=== PATIENT | female | born 1995 | race Caucasian/White ===

== ENCOUNTER 2016-07-31 18:30 | Emergency (ER) | payer MEDICAID ==
[~2016-07-31] VITALS: Wt 59.5 kg
[~2016-07-31 18:30] MED LIST: ALBU8.5H3 INH; MED4DP PO
[2016-07-31] MEDS ORDERED: LORA-186 PO (18:47)
[2016-07-31] MEDS ORDERED: SODI30SP2 NS (18:47)
--- NOTE | 2016-07-31 19:13 | ERD ---
ER Documentation Chief Complaint Date/Time DATE: 07/31/16 TIME: 19:10 Chief Complaint SORE THROAT S/P SMOKING E-MARIJUANA PEN NAUSEA/HEADACHE/SINUS PRESSURE HPI This is a 21-year-old female presenting to the emergency department complaining of a mild to moderate sore throat that occurred status post "hitting from her bong" last night. Patient states that she had a lot of coughing at that time and states that never occurred before. Patient states that she woke up this morning with nasal congestion. She denies this is mild to moderate in severity. She denies any fevers, chest pain or shortness of breath ROS All systems reviewed and are negative except as per history of present illness. Medications Home Meds Active Scripts Sodium Chloride (Saline Nasal [place]) 30 Ml [place], 30 ML NS BID for 5 Days, SPRAY Prov:LISA RANDALL PA-C 07/31/16 Loratadine* (Claritin*) 10 Mg Tablet, 10 MG PO DAILY, #30 TAB Prov:LISA RANDALL PA-C 07/31/16 Albuterol Sulfate* (Proair HFA*) 8.5 Gm Hfa.aer.ad, 2 PUFF INH Q4, #1 INHALER Prov:HO ALBERT 12/09/15 Methylprednisolone* (Medrol* DOSE PACK) 4 Mg/Dose-Pack Tab.ds.pk, 4 MG PO . DIRECTED for 6 Days, PACKET Prov:HO ALBERT 12/09/15 Allergies Allergies: Coded Allergies: Penicillins (Verified Allergy, Intermediate, Rash, 12/09/15) amoxicillin (Verified Allergy, Intermediate, rash, 12/09/15) PMhx/Soc History of Surgery: No Anesthesia Reaction: No Hx Neurological Disorder: No Hx Respiratory Disorders: No Hx Cardiac Disorders: No Hx Psychiatric Problems: No Hx Alcohol Use: No Hx Substance Use: Yes ("blunts" marijuana) Hx Tobacco Use: No Physical Exam Vitals Vital Signs Date Time Temp Pulse Resp B/P Pulse Ox O2 Delivery O2 Flow Rate FiO2 07/31/16 18:32 98.5 74 20 133/82 98 Physical Exam GENERAL: well-developed/well-nourished, in no apparent distress, non-toxic appearing HEAD: NC/AT, no swelling noted in frontal or maxillary areas EARS: bilateral tympanic membrane is intact without erythema or effusion NARES: nares patent, rhinorrhea and congested THROAT: oropharynx nonerythematous without exudates, no tonsil enlargement, post nasal drip EYES: Conjunctiva normal NECK: Supple, no lymphadenopathy PULM: CTA bilaterally, no rales, rhonchi, or wheezing heard CV: Normal S1S2, RRR, good capillary refill GI: Soft, non-distended, normal bowel sounds, non-tender BACK: No midline tenderness, no masses EXT No clubbing, cyanosis, or edema NEURO: Alert and Orientated SKIN: Intact, normal turgor PSYCH: Normal mood and mentation Procedures/MDM This is a 21-year-old female presenting to the emergency department complaining of a sore throat status post smoking and coughing from a marijuana bong last night. On examination, patient had nasal congestion, this likely due to postnasal drip and allergies. Patient did not have any evidence of strep pharyngitis, mononucleosis, Rey's angina, peritonsillar abscess or retropharyngeal abscess. Patient is suitable and stable for discharge for home with precautions to return to the emergency department. Prescription for hypertension and nasal saline rinses given. She understands and agrees with plan Departure Diagnosis: Primary Impression: URI (upper respiratory infection) Condition: Stable Patient Instructions: Preventing Common Respiratory Infections, Uri, Viral, No Abx (Adult) Referrals: DOCTOR,NOT ON STAFF Additional Instructions: FOLLOW UP WITH YOUR PRIMARY CARE PHYSICIAN TOMORROW.Return to this facility if you are not improving as expected. Take all medicines as directed. Return to this facility if you are not improving as expected. LISA RANDALL PA-C July 31, 2016 19:13
== END 2016-07-31 18:48 | disposition home or self-care (01) ==
LOC: E/R 18:30
DX: J06.9 Acute upper respiratory infection, unspecified (principal)
CPT/HCPCS: 99283

== ENCOUNTER 2016-08-30 20:00 | Emergency (ER) | payer MEDICAID, OTHER ==
[~2016-08-30] VITALS: Ht 167.6 cm; Wt 58.5 kg
[~2016-08-30 20:00] MED LIST changes: +LORA-186 PO; +SODI30SP2 NS
[2016-08-30 20:01] VITALS: Ht 167.6 cm; Wt 58.5 kg
[2016-08-30] MEDS ORDERED: KETOROLAC 15 MG INJ IM STA (21:00)
[2016-08-30] MEDS ORDERED: METOCLOPRAMIDE 10 MG TAB PO ONE (21:00)
[2016-08-30] MEDS ORDERED: HYDROCODONE/APAP (5/325) TAB PO ONE (21:00)
[2016-08-30] MEDS ORDERED: IBUP400T22 PO (22:11)
[2016-08-30] MEDS ORDERED: ONDA4TAB14 PO (22:27)
--- NOTE | 2016-08-31 07:16 | ERA ---
ER Documentation Chief Complaint Date/Time DATE: 08/31/16 TIME: 07:09 Chief Complaint headache x 1 day HPI This is a 21-year-old female who presents with a headache that is described as 7 out of 10 and a pressure-like starting 12 hours ago. Patient also describes the headache as throbbing. Has tried ice with minimal relief. Patient has had headaches and migraines in the past but not recently. Denies fever, worst headache of life, thunderclap headache, meningismus, temporal pain, eye pain, auras, change in vision, or new medications. The nursing notes have been reviewed and are consistent with the obtained history. ROS All systems reviewed and are negative except as per history of present illness. Medications Home Meds Active Scripts Ondansetron (Ondansetron Odt) 4 Mg Tab.rapdis, 4 MG PO Q6H Y for NAUSEA AND/OR VOMITING, #10 TAB Prov:CESAR PERRY PA-C 08/30/16 Ibuprofen* (Motrin*) 400 Mg Tab, 400 MG PO Q6, #30 TAB Prov:CESAR PERRY PA-C 08/30/16 Sodium Chloride (Saline Nasal [place]) 30 Ml [place], 30 ML NS BID for 5 Days, SPRAY Prov:LISA RANDLAL PA-C 07/31/16 Loratadine* (Claritin*) 10 Mg Tablet, 10 MG PO DAILY, #30 TAB Prov:LISA RANDALL PA-C 07/31/16 Albuterol Sulfate* (Proair HFA*) 8.5 Gm Hfa.aer.ad, 2 PUFF INH Q4, #1 INHALER Prov:HO ALBERT 12/09/15 Methylprednisolone* (Medrol* DOSE PACK) 4 Mg/Dose-Pack Tab.ds.pk, 4 MG PO . DIRECTED for 6 Days, PACKET Prov:HO ALBERT 12/09/15 Allergies Allergies: Coded Allergies: Penicillins (Verified Allergy, Intermediate, Rash, 12/09/15) amoxicillin (Verified Allergy, Intermediate, rash, 12/09/15) PMhx/Soc History of Surgery: No Anesthesia Reaction: No Hx Neurological Disorder: No Hx Respiratory Disorders: No Hx Cardiac Disorders: No Hx Psychiatric Problems: No Hx Alcohol Use: No Hx Substance Use: Yes ("blunts" marijuana) Hx Tobacco Use: No Physical Exam Vitals Vital Signs Date Time Temp Pulse Resp B/P Pulse Ox O2 Delivery O2 Flow Rate FiO2 08/30/16 20:01 98.5 68 20 115/69 100 Physical Exam Const: Healthy-appearing. Well-nourished. Well-developed. No acute distress. Head: Normocephalic, Atraumatic. Eyes: Non-injected; No scleral erythema, discharge or foreign body. EOMI and MYRA bilaterally. No nystagmus. Ophthalmoscope exam within normal limits. Ears: Normal External Ears, EACs clear, TM normal bilaterally without erythema. Nose: Normal nose without discharge, septal deviation, or sinus tenderness. Oral: No oral edema visualized. Mucous membranes moist and pink. Neck: No cervical lymphadenopathy, masses or goiter palpated. Full range of motion. Supple. Trachea midline. ~ No meningismus. Pulm: Good air movement in upper and lower respiratory tracts. No dyspnea, stridor, tripoding or drooling. Clear to auscultation bilaterally. Cardio: Regular rate and rhythm; No murmurs, gallops or rubs auscultated. No JVD grossly observed. Radial and posterior tibial pulses 2+ bilaterally. No cyanosis. Capillary refill less than 2 seconds. Abd: Soft, non tender, non distended. No guarding, masses. Normal bowel sounds. No McBurney's point tenderness. MS: Normal motor strength, normal tone with gross examination. Skin: No petechiae or rashes. No ulcer, induration, jaundice. Good turgor. Back: No midline, flank or CVA tenderness. Ext: No cyanosis, or edema. Normal movement of all extremities grossly observed. Neur: Awake, alert and oriented x3. Neurovascularly intact bilaterally. Psych: Normal Mood and Affect. Results 24 hrs Current Medications Medications (Trade) Dose Ordered Sig/Rupal Route PRN Reason Start Time Stop Time Status Last Admin Dose Admin Metoclopramide HCl (Reglan) 10 mg ONCE ONCE PO 08/30/16 21:00 08/30/16 21:01 DC 08/30/16 21:18 Acetaminophen/ Hydrocodone Bitart ([place] (5/325)) 1 tab ONCE ONCE PO 08/30/16 21:00 08/30/16 21:01 DC 08/30/16 21:18 Ketorolac Tromethamine (Toradol) 15 mg ONCE STAT IM 08/30/16 21:00 08/30/16 21:01 DC 08/30/16 21:19 Procedures/MDM Patient was worked up and evaluated for headache as described in the history and physical examination. ED treatment included 10 mg of Reglan p.o., 5/325 mg of [place] p.o., and 15 mg of Toradol IM. The treatment resulted in symptomatic relief. The current most likely diagnosis is tension type headache versus migraine without aura. At this time, I have little suspicion for subarachnoid hemorrhage or other intracranial bleeds, meningitis, temporal arteritis, glaucoma, hypertensive urgency/emergency, cerebral ischemia, arterial dissection, brain abscess/tumor, pain secondary to trauma, septicemia, or other intracranial bleeds. I have spoke with the patient regarding their condition and future management. They have verbally responded that they understand their status and treatment plan. The patients vitals are stable, and their current condition is appropriate for discharge. The patient will be given discharge instructions with return precautions. Departure Diagnosis: Primary Impression: Headache Qualified Code: G44.209 - Acute non intractable tension-type headache Condition: Stable Patient Instructions: Self-Care for Headaches Referrals: [facility] (PCP) Additional Instructions: Follow up with your PCP within the next 1-3 days for a more thorough evaluation and a possible referral to a specialist. Return the the emergency department immediately if symptoms worsen or change. If you have any questions regarding medications, ask your pharmacist or us before you leave. If any adverse reactions occur while taking your medications, discontinue the treatment and return to the emergency department immediately. Take your medications as directed, and complete the entire course of treatment. CESAR PERRY PA-C Aug 31, 2016 07:16
== END 2016-08-30 22:30 | disposition home or self-care (01) ==
LOC: FTE 20:00
DX: G44.209 Tension-type headache, unspecified, not intractable (principal)
CPT/HCPCS: 96372; J1885; Z7502; Z7610